=== PATIENT | female | born 1930 | race Caucasian/White ===

== ENCOUNTER → 2016-09-22 | Outpatient (CLI) | payer MEDICARE, OTHER ==
[2016-09-22 12:52] LABS: APPEARANCE,URINE SLIGHTLY-CLOUDY; BILIRUBIN,URINE NEGATIVE (NEGATIVE); GLUCOSE, URINE NEGATIVE (NEGATIVE); KETONES,URINE NEGATIVE (NEGATIVE); LEUKOCYTE ESTERASE,URINE NEGATIVE (NEGATIVE); NITRITE,URINE NEGATIVE (NEGATIVE); PROTEIN,URINE NEGATIVE (NEGATIVE); URINE SPECIFIC GRAVITY 1.031; UROBILINOGEN,URINE NEGATIVE mg/dL (<2.0)
[2016-09-22 12:53] LABS: ABSOLUTE EOSINOPHILS # (AUTO) 0.1 10^3/uL (0.0-0.6); ABSOLUTE LYMPHOCYTES (AUTO) 2.1 10^3/uL (0.5-4.7); ABSOLUTE MONOCYTES (AUTO) 1.3 10^3/uL (0.1-1.4); ABSOLUTE NEUT (AUTO) 10.8 10^3/uL (1.7-8.2); BASOPHILS % (AUTO) 0.3 % (0-2); EOSINOPHILS % (AUTO) 0.7 % (0-6); HEMATOCRIT 44.7 % (36.0-47.0); HEMOGLOBIN 15.3 g/dL (12.0-15.5); HGB HCT DIFFERENCE 1.2; LYMPHOCYTES % (AUTO) 14.5 % (13-45); MEAN CORPUSCULAR HGB CONC 34.3 g/dL (32.0-36.0); MEAN CORPUSCULAR VOLUME 90 fl (80-97); RED BLOOD COUNT 4.94 10^6/uL (3.72-5.28); RED CELL DISTRIBUTION WIDTH 12.8 % (11.5-14.0); SEGMENTED NEUTROPHILS % (AUTO) 75.5 % (42-78); WHITE BLOOD COUNT 14.4 10^3/uL (4.0-10.5)
[2016-09-22 13:11] LABS: ANION GAP 15 (5-19); BLOOD UREA NITROGEN 22 mg/dL (7-20); CALCIUM 10.3 mg/dL (8.4-10.2); CARBON DIOXIDE 22 mmol/L (22-30); CHLORIDE 104 mmol/L (98-107); CREATININE RESULT 0.68 mg/dL (0.52-1.25); GLUCOSE 84 mg/dL (75-110); POTASSIUM 4.7 mmol/L (3.6-5.0)
--- NOTE | 2016-09-22 13:43 | EKG REPORT ---
SEVERITY:- ABNORMAL ECG - SINUS RHYTHM RIGHT BUNDLE BRANCH BLOCK : Confirmed by: Manish Rogers MD 22-Sep-2016 13:42:59
== END ==
LOC: OD 11:52
PROVIDERS: ATTEND Orthopaedic Surgery
DX: Z01.818 Encounter for other preprocedural examination (principal); Z01.810 Encounter for preprocedural cardiovascular examination; Z01.812 Encounter for preprocedural laboratory examination; J44.9 Chronic obstructive pulmonary disease, unspecified
CPT/HCPCS: 36415; 71020; 80048; 81001; 85025; 93005; 93010

== ENCOUNTER 2016-10-10 08:03 | Inpatient (IN) | payer MEDICARE, OTHER ==
[~2016-10-10 08:03] MED LIST: BUPIVACAINE INJ/PF LIPOSOME/PF 266 MG/20 ML SDV IJ PRN; CLINDAMYCIN 600 MG/D5W RTU 600 MG/50 ML RTUPB IV PRN; IBUPROFEN 800 MG/NS 250 ML IV PRN; LACTATED RINGERS 1000 ML IV PRN; LANSOPRAZOLE 15 MG TAB.RAP.DR PO PRN; LIDOCAINE 0.5% INJ-PF (5 MG/ML) 50 ML SDV SUBCUT PRN; OXYCODONE HCL SR 10 MG TABLET PO PRN; SCOPOLAMINE HYDROBROMIDE 1.5 MG PATCH.TD72 TOP PRN; VANCOMYCIN HCL 1,000 MG in DEXTROSE 5%-WATER 250 ML IV PRN
[2016-10-10] MEDS: BUPIVACAINE INJ/PF LIPOSOME/PF 266 MG/20 ML SDV ONE ×2 (09:54→11:27)
[2016-10-10] MEDS: THROMBIN (BOVINE) 5000 UNIT EPITAXIS KIT ONE ×2 (09:55→11:27)
[2016-10-10] MEDS: THROMBIN (BOVINE) TOPICAL 20000 UNIT VIAL ONE ×2 (09:56→11:27)
[2016-10-10] MEDS ORDERED: PROPOFOL INJ 200 MG/20 ML VIAL IV ONE (10:24)
[2016-10-10] MEDS ORDERED: MIDAZOLAM 2 MG/2 ML INJ ONE (10:24)
[2016-10-10] MEDS ORDERED: FENTANYL CITRATE INJ/PF 100 MCG/2 ML AMPUL ONE (10:24)
[2016-10-10] MEDS ORDERED: TRANEXAMIC ACID INJ/PF 1,000 MG/10 ML SDV IV ONE ×3 (10:24→14:00)
[2016-10-10] MEDS ORDERED: PROMETHAZINE HCL INJ 25 MG/1 ML VIAL IV PRN ×2 (11:31)
[2016-10-10] MEDS ORDERED: MORPHINE SULFATE 10 MG/ML INJ IV PRN ×3 (11:31→12:10)
[2016-10-10] MEDS ORDERED: FENTANYL CITRATE INJ/PF 100 MCG/2 ML AMPUL IV PRN ×3 (11:31)
[2016-10-10] MEDS ORDERED: DIPHENHYDRAMINE HCL 50 MG/ML VIAL IV PRN ×2 (11:31→12:10)
[2016-10-10] MEDS ORDERED: MEPERIDINE HCL/PF INJ 25 MG/1 ML DISP.SYRIN IV PRN (11:31)
[2016-10-10] MEDS ORDERED: OXYCODONE-ACETAMINOPHEN 5-325 MG TABLET PO PRN ×2 (11:31)
[2016-10-10] MEDS ORDERED: MG TRISILICATE/ALH/NAHCO3/AA CHEWABLE TABLET PO PRN (12:08)
[2016-10-10] MEDS ORDERED: ACETAMINOPHEN 325 MG TABLET PO PRN ×2 (12:08→12:10)
[2016-10-10] MEDS ORDERED: MAG HYDROX/AL HYDROX/SIMETH SUSP 30 ML UDCUP PO PRN (12:10)
[2016-10-10] MEDS ORDERED: MORPHINE SULFATE 10 MG/ML INJ IM PRN (12:10)
[2016-10-10] MEDS ORDERED: ZOLPIDEM TARTRATE 5 MG TABLET PO PRN (12:10)
[2016-10-10] MEDS ORDERED: ONDANSETRON 4 MG TAB.RAPDIS PO PRN (12:10)
[2016-10-10] MEDS ORDERED: RINGERS SOLUTION,LACTATED 1,000 ML IV PRN (12:10)
[2016-10-10] MEDS ORDERED: ONDANSETRON HCL INJ/PF 4 MG/2 ML SDV IV PRN (12:10)
--- NOTE | 2016-10-10 12:16 | Operative Report ---
Operative Report DATE OF SURGERY: 10/10/16 PREOPERATIVE DIAGNOSIS: Left knee arthritis OPERATION: Left knee arthroplasty SURGEON: DELMY WILKINSON ANESTHESIA: Spinal TISSUE REMOVED OR ALTERED: Bone to pathology ESTIMATED BLOOD LOSS: 100 PROCEDURE: Implants used: Femur: Striker triathlon #4 CR femur Tibia:, 3 tibia Tibial liner:, 9 mm CS insert Patella: 29 mm oval patella Procedure with the patient supine on the operating table the left the limb is prepped and draped in a sterile fashion. The limb was elevated for exsanguination and the tourniquet inflated to 280 torr. A standard midline median parapatellar approach the knee is taken. Access is gained to the femoral canal through the intercondylar notch. Intramedullary alignment instrumentation used to resect 10 mm of distal femur in 5 of valgus. Sizing guide indicated a size for femur. Appropriate cutting jig is then used to fashion anterior posterior and chamfer cuts. A trial reduction femurs performed and this is judged to be adequate. Attention was next turned to the tibia. Using an extra medullary alignment system 9 millimeters was resected off the lateral tibial plateau. This is sized to a size 3 tibia. A trial reduction was now performed with a 4 femur and a 3 tibia using a 9 millimeters spacer. It is full extension and central patellofemoral tracking. The articular surface the patella was next resected using an oscillating saw. All trial implants were removed. Polymethylmethacrylate is mixed and used to cement the above implants in place. On adequate curing the cement excess cement was removed the tourniquet was deflated hemostasis obtained the wound is then closed in layers using interrupted Vicryl followed by giselle. A sterile compressive dressing was applied and the patient returned to recovery room in satisfactory condition.
[2016-10-10] MEDS ORDERED: GLYCOPYRROLATE INJ 0.4 MG/2 ML VIAL ONE (13:43)
[2016-10-10] MEDS ORDERED: ONDANSETRON HCL INJ/PF 4 MG/2 ML SDV ONE (13:43)
[2016-10-10] MEDS ORDERED: METOCLOPRAMIDE HCL INJ/PF 10 MG/2 ML SDV ONE (13:43)
[2016-10-10] MEDS: MECLIZINE HCL 25 MG TABLET PO SCH ×2 (16:24→17:49)
[2016-10-10] MEDS: OXYCODONE HCL IR 5 MG TABLET PO PRN (17:47)
[2016-10-10] MEDS: IBUPROFEN 800 MG in NORMAL SALINE 250 ML IV SCH (17:47)
[2016-10-10] MEDS: CYCLOSPORINE 0.05% OPH EMULSIO 0.4 ML DROPERETTE OP SCH (17:47)
[2016-10-10] MEDS: SENNOSIDES/DOCUSATE 8.6-50 MG 1 EACH TABLET PO SCH (17:48)
[2016-10-10] MEDS: LUBIPROSTONE 24 MCG CAPSULE PO SCH (17:48)
[2016-10-10] MEDS: SPIRONOLACTONE 25 MG TABLET PO SCH (17:48)
[2016-10-10] MEDS ORDERED: OXYCODONE HCL SR 10 MG TABLET PO SCH (22:00)
[2016-10-10] MEDS: MORPHINE SULFATE 10 MG/ML INJ IV PRN (23:15)
[2016-10-10] MEDS: FLUTICASONE NASAL SPRAY 50 MCG/SPRY 120 SPRAY/16 GM NASL SCH (23:18)
[2016-10-10] MEDS: LATANOPROST 0.005% OPH SOLN 2.5 ML OP SCH (23:21)
[2016-10-10] MEDS: RIVAROXABAN 10 MG TABLET PO SCH (23:23)
[2016-10-11] MEDS ORDERED: VANCOMYCIN HCL 1,000 MG in DEXTROSE 5%-WATER 250 ML IV ONE ×2
[2016-10-11] MEDS: OXYCODONE HCL IR 5 MG TABLET PO PRN ×3 (01:02→18:34)
[2016-10-11] MEDS: IBUPROFEN 800 MG in NORMAL SALINE 250 ML IV SCH ×3 (01:03→17:31)
[2016-10-11 05:38] LABS: HEMATOCRIT 36.2 % (36.0-47.0); HEMOGLOBIN 12.2 g/dL (12.0-15.5); HGB HCT DIFFERENCE 0.4; MEAN CORPUSCULAR HGB CONC 33.8 g/dL (32.0-36.0); MEAN CORPUSCULAR VOLUME 92 fl (80-97); RED BLOOD COUNT 3.95 10^6/uL (3.72-5.28); WHITE BLOOD COUNT 11.1 10^3/uL (4.0-10.5)
[2016-10-11 06:05] LABS: ANION GAP 11 (5-19); BLOOD UREA NITROGEN 11 mg/dL (7-20); CALCIUM 8.8 mg/dL (8.4-10.2); CARBON DIOXIDE 22 mmol/L (22-30); CHLORIDE 102 mmol/L (98-107); CREATININE RESULT 0.69 mg/dL (0.52-1.25); GLUCOSE 116 mg/dL (75-110); SODIUM 135.4 mmol/L (137-145)
[2016-10-11] MEDS: MORPHINE SULFATE 10 MG/ML INJ IV PRN (06:22)
[2016-10-11] MEDS: LANSOPRAZOLE 30 MG TAB.RAP.DR PO SCH (06:23)
--- NOTE | 2016-10-11 06:58 | PDOC PROGRESS REPORT ---
Subjective Progress Note for:: 10/11/16 Subjective:: Patient without any specific complaints Physical Exam Vital Signs: Temp Pulse Resp BP Pulse Ox 36.6 C 72 18 121/43 L 95 10/11/16 04:00 10/11/16 04:00 10/11/16 04:00 10/11/16 04:00 10/11/16 04:00 Intake & Output 10/09/16 10/10/16 10/11/16 06:59 06:59 06:59 Intake Total 4508 Output Total 4150 Balance 358 Weight 63.5 kg General appearance: PRESENT: no acute distress Head exam: PRESENT: normocephalic Eye exam: PRESENT: EOMI Respiratory exam: PRESENT: unlabored Cardiovascular exam: PRESENT: RRR Vascular exam: PRESENT: normal capillary refill GI/Abdominal exam: PRESENT: soft Rectal exam: PRESENT: deferred Extremities exam: PRESENT: other - Left lower extremity dressing is clean dry and intact. Distal neurovascular examinations intact. Skin exam: PRESENT: dry, intact, warm. ABSENT: cyanosis, rash Results Laboratory Results: 10/11/16 05:09 10/11/16 05:09 10/10/16 10/11/16 10/11/16 08:42 05:09 05:09 WBC 11.1 H RBC 3.95 Hgb 12.2 Hct 36.2 MCV 92 MCH 31.0 MCHC 33.8 RDW 13.0 Plt Count 166 Sodium 135.4 L Potassium 4.2 4.0 Chloride 102 Carbon Dioxide 22 Anion Gap 11 BUN 11 Creatinine 0.69 Est GFR ( Amer) > 60 Est GFR (Non-Af Amer) > 60 Glucose 116 H Calcium 8.8 Impressions: Knee X-Ray 10/10/16 12:11 IMPRESSION: SATISFACTORY POSTOPERATIVE LEFT KNEE. Status: Imported from PACS Assessment & Plan - Diagnosis (1) Arthritis of left knee Is this a current diagnosis for this admission?: YesPlan: 86-year-old white female status post left knee arthroplasty with an uneventful postoperative course. I'm somewhat concerned that she is overmedicated and hence have stopped her OxyContin. She ambulated 40 feet with physical therapy yesterday and will continue with aggressive physical therapy program. - Time Time Spent with patient: 15-24 minutes Anticipated discharge: Home with Homehealth Within: within 24 hours
[2016-10-11] MEDS ORDERED: (PENDING PHARMACY ID) (Atenolol [Tenormin] 25 MG) PO SCH (08:00)
[2016-10-11] MEDS: AMLODIPINE BESYLATE 5 MG TABLET PO SCH (08:28)
[2016-10-11] MEDS: ATENOLOL 50 MG TABLET PO SCH (08:28)
[2016-10-11] MEDS ORDERED: (PENDING PHARMACY ID) (Calcium Carbonate [Calcium] 600 MG) PO SCH (10:00)
[2016-10-11] MEDS ORDERED: ASCORBIC ACID PO SCH (10:00)
[2016-10-11] MEDS: LUBIPROSTONE 24 MCG CAPSULE PO SCH ×2 (10:13→17:32)
[2016-10-11] MEDS: PRENATAL VITAMIN W-O CA NO5/FE FUMARATE/FA CAPSULE PO SCH (10:13)
[2016-10-11] MEDS: FLUTICASONE NASAL SPRAY 50 MCG/SPRY 120 SPRAY/16 GM NASL SCH ×2 (10:13→22:39)
[2016-10-11] MEDS: ASCORBIC ACID 500 MG TABLET PO SCH (10:13)
[2016-10-11] MEDS: MONTELUKAST SODIUM 10 MG TABLET PO SCH (10:13)
[2016-10-11] MEDS: MECLIZINE HCL 25 MG TABLET PO SCH ×3 (10:13→17:32)
[2016-10-11] MEDS: SPIRONOLACTONE 25 MG TABLET PO SCH ×2 (10:14→17:32)
[2016-10-11] MEDS: MULTIVITAMIN TABLET PO SCH (10:14)
[2016-10-11] MEDS: SENNOSIDES/DOCUSATE 8.6-50 MG 1 EACH TABLET PO SCH ×2 (10:14→17:32)
[2016-10-11] MEDS: CALCIUM CARBONATE 500 MG TABLET PO SCH (10:14)
[2016-10-11] MEDS: CYCLOSPORINE 0.05% OPH EMULSIO 0.4 ML DROPERETTE OP SCH ×2 (10:15→17:32)
[2016-10-11] MEDS: RIVAROXABAN 10 MG TABLET PO SCH (22:38)
[2016-10-11] MEDS: LATANOPROST 0.005% OPH SOLN 2.5 ML OP SCH (22:39)
[2016-10-12] MEDS: OXYCODONE HCL IR 5 MG TABLET PO PRN (00:24)
[2016-10-12] MEDS: IBUPROFEN 800 MG in NORMAL SALINE 250 ML IV SCH ×2 (01:43→10:32)
[2016-10-12] MEDS: LANSOPRAZOLE 30 MG TAB.RAP.DR PO SCH (05:46)
[2016-10-12 06:29] LABS: HEMATOCRIT 36.6 % (36.0-47.0); HEMOGLOBIN 12.6 g/dL (12.0-15.5); HGB HCT DIFFERENCE 1.2; MEAN CORPUSCULAR HEMOGLOBIN 31.1 pg (27.0-33.4); MEAN CORPUSCULAR HGB CONC 34.4 g/dL (32.0-36.0); MEAN CORPUSCULAR VOLUME 91 fl (80-97); RED BLOOD COUNT 4.04 10^6/uL (3.72-5.28); RED CELL DISTRIBUTION WIDTH 13.4 % (11.5-14.0); WHITE BLOOD COUNT 14.2 10^3/uL (4.0-10.5)
--- NOTE | 2016-10-12 07:07 | PDOC PROGRESS REPORT ---
Subjective Progress Note for:: 10/12/16 Subjective:: Patient with considerable mental status changes Physical Exam Vital Signs: Temp Pulse Resp BP Pulse Ox 36.4 C 101 H 19 132/54 H 93 10/12/16 00:12 10/12/16 00:12 10/12/16 00:12 10/12/16 00:12 10/12/16 00:12 Intake & Output 10/11/16 10/12/16 10/13/16 06:59 06:59 06:59 Intake Total 4508 750 Output Total 4150 Balance 358 750 Weight 63.5 kg General appearance: PRESENT: no acute distress Head exam: PRESENT: normocephalic Respiratory exam: PRESENT: unlabored Cardiovascular exam: PRESENT: RRR Vascular exam: PRESENT: normal capillary refill GI/Abdominal exam: PRESENT: soft Rectal exam: PRESENT: deferred Extremities exam: PRESENT: other - Left lower extremity dressing is clean dry and intact. Psychiatric exam: PRESENT: other Focused psych exam: PRESENT: restlessness Skin exam: PRESENT: dry, intact, warm. ABSENT: cyanosis, rash Results Laboratory Results: 10/12/16 05:14 10/11/16 05:09 10/12/16 05:14 WBC 14.2 H RBC 4.04 Hgb 12.6 Hct 36.6 MCV 91 MCH 31.1 MCHC 34.4 RDW 13.4 Plt Count 175 Impressions: Knee X-Ray 10/10/16 12:11 IMPRESSION: SATISFACTORY POSTOPERATIVE LEFT KNEE. Status: Imported from PACS Assessment & Plan - Diagnosis (1) Arthritis of left knee Is this a current diagnosis for this admission?: YesPlan: 86-year-old white female postop day 2 from left knee arthroplasty. Yesterday she seemed oversedated and I stopped her OxyContin. Over the course of the day she became more and more confused and agitated. She was seen caring her walker behind her as she walked down the church independently. I suspect that the mental status changes reflect an underlying metabolic encephalopathy, presumably pharmacogenetic. I've further stopped her oxycodone, Ambien, and morphine. I've discussed the necessity for a DVT prophylaxis with the nursing staff and if we cannot get cooperation taking Xarelto will have to resort to Lovenox. Because the mental status changes. I don't think it's appropriate for her to consider discharge home today. If the mental status and clear consideration probably should be given to a fpc facility placement - Time Time Spent with patient: 15-24 minutes Medications reviewed and adjusted accordingly: Yes Anticipated discharge: SNF Within: within 24 hours
[2016-10-12] MEDS: AMLODIPINE BESYLATE 5 MG TABLET PO SCH (08:42)
[2016-10-12] MEDS: ATENOLOL 50 MG TABLET PO SCH (10:24)
[2016-10-12] MEDS: CYCLOSPORINE 0.05% OPH EMULSIO 0.4 ML DROPERETTE OP SCH ×2 (10:24→17:39)
[2016-10-12] MEDS: ASCORBIC ACID 500 MG TABLET PO SCH (10:24)
[2016-10-12] MEDS: PRENATAL VITAMIN W-O CA NO5/FE FUMARATE/FA CAPSULE PO SCH (10:24)
[2016-10-12] MEDS: LUBIPROSTONE 24 MCG CAPSULE PO SCH ×2 (10:24→17:40)
[2016-10-12] MEDS: FLUTICASONE NASAL SPRAY 50 MCG/SPRY 120 SPRAY/16 GM NASL SCH ×2 (10:24→23:05)
[2016-10-12] MEDS: MECLIZINE HCL 25 MG TABLET PO SCH (10:25)
[2016-10-12] MEDS: SPIRONOLACTONE 25 MG TABLET PO SCH ×2 (10:25→17:40)
[2016-10-12] MEDS: MULTIVITAMIN TABLET PO SCH (10:25)
[2016-10-12] MEDS: MONTELUKAST SODIUM 10 MG TABLET PO SCH (10:25)
[2016-10-12] MEDS: SENNOSIDES/DOCUSATE 8.6-50 MG 1 EACH TABLET PO SCH ×2 (10:25→17:40)
[2016-10-12] MEDS: CALCIUM CARBONATE 500 MG TABLET PO SCH (10:25)
[2016-10-12] MEDS: HYDROCODONE/ACETAMINOPHEN 5-325 MG TABLET PO PRN ×2 (11:43→23:05)
[2016-10-12] MEDS ORDERED: HALOPERIDOL LACTATE INJ 5 MG/1 ML VIAL IV PRN (13:31)
[2016-10-12 15:20] LABS: ANION GAP 12 (5-19); BLOOD UREA NITROGEN 11 mg/dL (7-20); CALCIUM 9.5 mg/dL (8.4-10.2); CARBON DIOXIDE 25 mmol/L (22-30); CHLORIDE 102 mmol/L (98-107); CREATININE RESULT 0.67 mg/dL (0.52-1.25); GLUCOSE 119 mg/dL (75-110); POTASSIUM 3.7 mmol/L (3.6-5.0); SODIUM 139.4 mmol/L (137-145)
[2016-10-12 15:20] LABS: APPEARANCE,URINE CLEAR; BILIRUBIN,URINE NEGATIVE (NEGATIVE); GLUCOSE, URINE NEGATIVE (NEGATIVE); KETONES,URINE NEGATIVE (NEGATIVE); LEUKOCYTE ESTERASE,URINE NEGATIVE (NEGATIVE); NITRITE,URINE NEGATIVE (NEGATIVE); PROTEIN,URINE NEGATIVE (NEGATIVE); URINE SPECIFIC GRAVITY 1.006; UROBILINOGEN,URINE NEGATIVE mg/dL (<2.0)
--- NOTE | 2016-10-12 18:58 | EKG REPORT ---
SEVERITY:- ABNORMAL ECG - SINUS RHYTHM RIGHT BUNDLE BRANCH BLOCK : Confirmed by: Manish Rogers MD 12-Oct-2016 18:57:33
[2016-10-12] MEDS ORDERED: GUAIFENESIN SYRP 200 MG/10 ML UDC PO PRN (21:29)
[2016-10-12] MEDS ORDERED: IPRATROPIUM/ALBUTEROL 0.5-2.5 MG/3 ML AMPUL NEB PRN (21:29)
[2016-10-12] MEDS ORDERED: AZTREONAM INJ 1 GM VIAL IV SCH (22:15)
[2016-10-12] MEDS ORDERED: DOXYCYCLINE HYCLATE 100 MG in DEXTROSE 5%-WATER 250 ML IV SCH (22:15)
[2016-10-12] MEDS: LATANOPROST 0.005% OPH SOLN 2.5 ML OP SCH (23:06)
[2016-10-12] MEDS: HEPARIN SOD (PORCINE) 5,000 UNIT/ML 1 ML SYRINGE SUBCUT SCH (23:06)
[2016-10-12] MEDS ORDERED: DOXYCYCLINE HYCLATE INJ 100 MG VIAL ONE (23:30)
[2016-10-13] MEDS ORDERED: AZTREONAM 1 GM in DEXTROSE 5%-WATER 50 ML IV SCH ×2
[2016-10-13 04:52] LABS: HEMATOCRIT 34.1 % (36.0-47.0); HGB HCT DIFFERENCE 1.9; MEAN CORPUSCULAR HEMOGLOBIN 31.7 pg (27.0-33.4); MEAN CORPUSCULAR HGB CONC 35.1 g/dL (32.0-36.0); MEAN CORPUSCULAR VOLUME 90 fl (80-97); RED BLOOD COUNT 3.78 10^6/uL (3.72-5.28); RED CELL DISTRIBUTION WIDTH 13.3 % (11.5-14.0); WHITE BLOOD COUNT 9.9 10^3/uL (4.0-10.5)
[2016-10-13] MEDS: HYDROCODONE/ACETAMINOPHEN 5-325 MG TABLET PO PRN (06:08)
[2016-10-13] MEDS: LANSOPRAZOLE 30 MG TAB.RAP.DR PO SCH (06:08)
[2016-10-13] MEDS ORDERED: AZTREONAM INJ 1 GM VIAL ONE (06:57)
--- NOTE | 2016-10-13 06:57 | PDOC TRANSFER SUMMARY ---
General - Admit/Disc Date/PCP Admission Date/Primary Care Provider: 10/10/16 08:03 HALE[facility] HORTON Discharge Date: 10/13/16 - Discharge Diagnosis (1) Arthritis of left knee Is this a current diagnosis for this admission?: Yes - Additional Information Resuscitation Status: Full Code Discharge Diet: As Tolerated, Regular Discharge Activity: Activity As Tolerated, Balance Activity w/Rest Home Medications: Acetaminophen [Tylenol] 650 mg PO Q8 PRN 09/28/16 Amlodipine Besylate 5 mg PO QAM 09/28/16 Ascorbic Acid [Vitamin C] 1 cap.sr PO DAILY 09/28/16 Aspirin [Aspirin EC] 81 mg PO DAILY 09/28/16 Atenolol [Tenormin] 25 mg PO QAM 09/28/16 Calcium Carbonate [Calcium] 600 mg PO DAILY 09/28/16 Cyclosporine 0.05% Oph Emulsio [Restasis 0.05% Oph Emulsion Pf 0.4 ml] 1 drop OP BID 09/28/16 Fluticasone Propionate [Flonase Nasal [place] 50 Mcg/Parnell 16 gm] 1 spray NASL Q12 09/28/16 Ibuprofen 400 mg PO QHS 09/28/16 Latanoprost [Xalatan 0.005% Oph Soln 2.5 ml] 1 drop OP QHS 09/28/16 Lubiprostone [Amitiza] 24 mcg PO BID 09/28/16 Meclizine HCl 25 mg PO TID 09/28/16 Montelukast Sodium [Singulair] 10 mg PO DAILY 09/28/16 Multivitamin [Multivitamins] 1 each PO DAILY 09/28/16 Spironolactone 25 mg PO BID 09/28/16 Tramadol HCl 50 mg PO QHS 09/28/16 mg Trisilicate/Alh/Nahco3/Aa [Gaviscon Tablet Chew] 1 each PO DAILY PRN Guaifenesin [Robitussin Syrup 200 mg/10 ml Ud Cup] 200 mg PO Q6HP PRN #0 udc 09/26 Haloperidol Lactate [Haldol 5 mg/ml Inj 1 ml Vial] 2 mg IV Q6HP PRN #0 vial 09/26 History of Present Illness Admission Date/PCP: 10/10/16 08:03 HALE[facility] HORTON History of Present Illness: The patient's an 86-year-old white female who presents with progressive left knee pain and functional disability secondary osteoarthritis. She is admitted for elective left knee arthroplasty. Hospital Course Hospital Course: A she is admitted through the operating room where she undergoes an uncomplicated left knee arthroplasty. She's returned to floor in satisfactory condition. On postop day 1, she begins to develop significant mental status changes. Most of her medications. It could be discontinued were. She was consult by the hospital service who began doxycycline for presumed upper the torn infection as well as Haldol. Her mental status returned to baseline with the intervention. She's made excellent progress with physical therapy. Physical Exam Vital Signs: Temp Pulse Resp BP Pulse Ox 36.7 C 82 16 117/55 L 96 10/12/16 23:52 10/12/16 23:52 10/12/16 23:52 10/12/16 23:52 10/12/16 23:52 Intake & Output 10/11/16 10/12/16 10/13/16 06:59 06:59 06:59 Intake Total 4508 870 625 Output Total 4150 100 Balance 358 770 625 Weight 63.5 kg General appearance: PRESENT: no acute distress Head exam: PRESENT: normocephalic Respiratory exam: PRESENT: unlabored Cardiovascular exam: PRESENT: RRR Pulses: PRESENT: +1 pedal pulses bilateral GI/Abdominal exam: PRESENT: soft Rectal exam: PRESENT: deferred Musculoskeletal exam: PRESENT: other - Left lower extremity. Shady dressing is clean dry and intact. Neurological exam: PRESENT: alert, awake, oriented to person, oriented to place , oriented to time, oriented to situation Skin exam: PRESENT: dry, intact, warm. ABSENT: cyanosis, rash Results Laboratory Results: 10/13/16 04:34 10/12/16 14:37 10/12/16 10/12/16 10/13/16 14:02 14:37 04:34 WBC 9.9 RBC 3.78 Hgb 12.0 Hct 34.1 L MCV 90 MCH 31.7 MCHC 35.1 RDW 13.3 Plt Count 141 L Sodium 139.4 Potassium 3.7 Chloride 102 Carbon Dioxide 25 Anion Gap 12 BUN 11 Creatinine 0.67 Est GFR ( Amer) > 60 Est GFR (Non-Af Amer) > 60 Glucose 119 H Calcium 9.5 Urine Color YELLOW Urine Appearance CLEAR Urine pH 6.0 Ur Specific [place] 1.006 Urine Protein NEGATIVE Urine Glucose (UA) NEGATIVE Urine Ketones NEGATIVE Urine Blood NEGATIVE Urine Nitrite NEGATIVE Ur Leukocyte Esterase NEGATIVE Urine WBC (Auto) 0 Urine RBC (Auto) 1 Impressions: Knee X-Ray 10/10/16 12:11 IMPRESSION: SATISFACTORY POSTOPERATIVE LEFT KNEE. Chest X-Ray 10/12/16 00:00 IMPRESSION: A limited infiltrate versus subsegmental atelectasis cannot be ruled out in the left base. Status: Imported from PACS Transfer Plan - Disposition Transfer Plan: Patient to be transferred to [facility] facility for aggressive ongoing postoperative rehabilitation. The left knee shady dressing can be changed on postop day 7 replace with a standard OpSite dressing. Follow-up can be with Dr. Matute in [facility] for surgery 2 weeks for staple removal. - Time Spent with Patient Time spent with patient: Less than 30 Minutes
[2016-10-13] MEDS: AMLODIPINE BESYLATE 5 MG TABLET PO SCH (08:57)
[2016-10-13] MEDS: ATENOLOL 50 MG TABLET PO SCH (08:57)
[2016-10-13] MEDS: MULTIVITAMIN TABLET PO SCH (09:57)
[2016-10-13] MEDS: SENNOSIDES/DOCUSATE 8.6-50 MG 1 EACH TABLET PO SCH (09:57)
[2016-10-13] MEDS: PRENATAL VITAMIN W-O CA NO5/FE FUMARATE/FA CAPSULE PO SCH (09:57)
[2016-10-13] MEDS: SPIRONOLACTONE 25 MG TABLET PO SCH (09:57)
[2016-10-13] MEDS: CALCIUM CARBONATE 500 MG TABLET PO SCH (09:57)
[2016-10-13] MEDS: MONTELUKAST SODIUM 10 MG TABLET PO SCH (09:57)
[2016-10-13] MEDS: ASCORBIC ACID 500 MG TABLET PO SCH (09:58)
[2016-10-13] MEDS: HEPARIN SOD (PORCINE) 5,000 UNIT/ML 1 ML SYRINGE SUBCUT SCH (09:59)
[2016-10-13] MEDS: FLUTICASONE NASAL SPRAY 50 MCG/SPRY 120 SPRAY/16 GM NASL SCH (09:59)
[2016-10-13] MEDS: LUBIPROSTONE 24 MCG CAPSULE PO SCH (10:01)
[2016-10-13] MEDS: CYCLOSPORINE 0.05% OPH EMULSIO 0.4 ML DROPERETTE OP SCH (10:33)
[2016-10-13 14:25] VITALS: BP 107/63
--- NOTE | 2016-10-13 17:45 | PDOC CONSULTATION ---
Consultation Consult Date: 10/12/16 Attending physician:: DELMY WILKINSON Consult reason:: Confusion History of Present Illness Admission Date/PCP: 10/10/16 08:03 HALEIGH HORTON History of Present Illness: KEITH REEDER is a 86 year old female with a past medical history heart murmur, glaucoma, hypertension, constipation, arthritis who underwent left total knee replacement approximately 48 hours before. Patient began developing confusion after surgery. Patient's medications were stopped including OxyContin , oxycodone. She has no complaints at this time. Her daughters present at bedside and provides most of the history as is review of the chart. Past Medical History Cardiac Medical History: Reports: Hyperlipidema, Hypertension Denies: Atrial Fibrillation, Congestive Heart Failure, Coronary Artery Disease, Myocardial Infarction, Peripheral Vascular Disease, Pulmonary Embolism , Heart Murmur Pulmonary Medical History: Denies: Asthma, Bronchitis, Chronic Obstructive Pulmonary Disease (COPD), Pneumonia, Respiratory Failure, Sleep Apnea, Tuberculosis Renal/ Medical History: Denies: End Stage Renal Disease Malignancy Medical History: Denies: Lung Cancer Musculoskeltal Medical History: Reports: Arthritis Denies: Fibromyalgia Past Surgical History Past Surgical History: Reports: Appendectomy - at time of hysterectomy, Hysterectomy, Knee Replacement, Tonsillectomy Denies: Amputation, Section, Cholecystectomy, Coronary Artery Bypass Graft, Gastric Bypass Surgery, Herniorrhaphy, Mastectomy, Pacemaker, Tubal Ligation Social History Smoking Status: Former Smoker Cigarettes Packs Per Day: 0.3 Hx Recreational Drug Use: No Hx Prescription Drug Abuse: No - Advance Directive Resuscitation Status: Full Code Surrogate healthcare decision maker:: Son, Family History Family History: Hypertension, Malignancy Parental Family History Reviewed: Yes Children Family History Reviewed: Yes Sibling(s) Family History Reviewed.: Yes Medication/Allergy Home Medications: Acetaminophen [Tylenol] 650 mg PO Q8 PRN 09/28/16 Amlodipine Besylate 5 mg PO QAM 09/28/16 Ascorbic Acid [Vitamin C] 1 cap.sr PO DAILY 09/28/16 Aspirin [Aspirin EC] 81 mg PO DAILY 09/28/16 Atenolol [Tenormin] 25 mg PO QAM 09/28/16 Calcium Carbonate [Calcium] 600 mg PO DAILY 09/28/16 Cyclosporine 0.05% Oph Emulsio [Restasis 0.05% Oph Emulsion Pf 0.4 ml] 1 drop OP BID 09/28/16 Fluticasone Propionate [Flonase Nasal [place] 50 Mcg/[place] 16 gm] 1 spray NASL Q12 09/28/16 Ibuprofen 400 mg PO QHS 09/28/16 Latanoprost [Xalatan 0.005% Oph Soln 2.5 ml] 1 drop OP QHS 09/28/16 Lubiprostone [Amitiza] 24 mcg PO BID 09/28/16 Meclizine HCl 25 mg PO TID 09/28/16 Montelukast Sodium [Singulair] 10 mg PO DAILY 09/28/16 Multivitamin [Multivitamins] 1 each PO DAILY 09/28/16 Spironolactone 25 mg PO BID 09/28/16 Tramadol HCl 50 mg PO QHS 09/28/16 mg Trisilicate/Alh/Nahco3/Aa [Gaviscon Tablet Chew] 1 each PO DAILY PRN Guaifenesin [Robitussin Syrup 200 mg/10 ml Ud Cup] 200 mg PO Q6HP PRN #0 udc 09/26 Haloperidol Lactate [Haldol 5 mg/ml Inj 1 ml Vial] 2 mg IV Q6HP PRN #0 vial 09/26 Allergies/Adverse Reactions: Penicillins Allergy (Verified 09/28/16 18:08) Rash Sulfa (Sulfonamide Antibiotics) Allergy (Verified 09/28/16 18:08) Rash lactose Adverse Reaction (Verified 09/28/16 18:08) Upset Stomach/Cold Symptoms Review of Systems ROS unobtainable: Due to mental status Physical Exam Vital Signs: Temp Pulse Resp BP Pulse Ox 98.5 F 86 20 105/69 94 10/12/16 07:25 10/12/16 07:25 10/12/16 07:25 10/12/16 07:25 10/12/16 07:25 Intake & Output 10/11/16 10/12/16 10/13/16 06:59 06:59 06:59 Intake Total 4508 870 200 Output Total 4150 100 Balance 358 770 200 Weight 63.5 kg General appearance: PRESENT: no acute distress, well-developed, well-nourished Head exam: PRESENT: atraumatic, normocephalic Eye exam: PRESENT: conjunctiva pink, EOMI, PERRLA. ABSENT: scleral icterus Ear exam: PRESENT: normal external ear exam Mouth exam: PRESENT: moist, tongue midline Neck exam: ABSENT: JVD, lymphadenopathy, tracheal deviation Respiratory exam: PRESENT: decreased breath sounds - Left lower lobe, symmetrical, unlabored. ABSENT: rales, rhonchi, tachypnea, wheezes Cardiovascular exam: PRESENT: RRR, +S1, +S2, systolic murmur. ABSENT: diastolic murmur, rubs Pulses: PRESENT: normal dorsalis pedis pul Vascular exam: PRESENT: normal capillary refill GI/Abdominal exam: PRESENT: normal bowel sounds, soft. ABSENT: distended, guarding, mass, organolmegaly, rebound, tenderness Rectal exam: PRESENT: deferred Extremities exam: PRESENT: full ROM. ABSENT: calf tenderness, clubbing, pedal edema Neurological exam: PRESENT: alert, awake, oriented to person, CN II-XII grossly intact. ABSENT: oriented to place, oriented to time, oriented to situation, motor sensory deficit Psychiatric exam: PRESENT: agitated, appropriate affect. ABSENT: homicidal ideation, suicidal ideation Skin exam: PRESENT: dry, intact, warm. ABSENT: cyanosis, rash Results Laboratory Results: 10/12/16 05:14 10/12/16 05:14 WBC 14.2 H RBC 4.04 Hgb 12.6 Hct 36.6 MCV 91 MCH 31.1 MCHC 34.4 RDW 13.4 Plt Count 175 Impressions: Knee X-Ray 10/10/16 12:11 IMPRESSION: SATISFACTORY POSTOPERATIVE LEFT KNEE. Assessment & Plan - Diagnosis (1) Delirium Is this a current diagnosis for this admission?: YesPlan: We will continue to trend patient's medications including to exclude meclizine which she's been on scheduled. Will obtain UA and culture as well as chest x- ray. We'll stop her IV fluids. Patient is eating and drinking. We will also check an EKG and administered patient Haldol after this. Most likely this is delirium secondary to medications and will improve once they 've cleared. We appreciate his kind consult. (2) Heart murmur Is this a current diagnosis for this admission?: YesPlan: Patient has had preoperative clearance. We will pursue this if it becomes a issue. (3) Arthritis of left knee Is this a current diagnosis for this admission?: YesPlan: Defer to primary team - Time Time Spent: 30 to 50 Minutes Medications reviewed and adjusted accordingly: Yes Anticipated discharge: Acute Rehab Within: when bed available
== END 2016-10-13 15:26 | DRG 469 ==
LOC: INOR 08:03 → 4S 13:09
PROVIDERS: ADMIT Orthopaedic Surgery; ATTEND Orthopaedic Surgery
PROC: 0SRD0J9 Replacement of Left Knee Joint with Synthetic Substitute, Cemented, Open Approach (ICD-10-PCS; principal; 2016-10-10 10:15)
DX: M17.12 Unilateral primary osteoarthritis, left knee (principal); G92 Toxic encephalopathy; M25.552 Pain in left hip; I10 Essential (primary) hypertension; E78.5 Hyperlipidemia, unspecified; R41.0 Disorientation, unspecified; T40.2X5A Adverse effect of other opioids, initial encounter; Y92.230 Patient room in hospital as the place of occurrence of the external cause; Z96.651 Presence of right artificial knee joint; Z88.0 Allergy status to penicillin; Z88.2 Allergy status to sulfonamides
CPT/HCPCS: 01402; 36415; 71010; 80048; 81001; 84132; 85027; 87086; 87088; 87186; 88304; 88311; 93005; 93010; 94640; 94799; C9290; G8978-GP; G8979-GP; G8987-GO; G8988-GO; J1200; J1630; J1644; J1741; J2250; J2270; J2405; J2704; J2765; J3010; J3370; J3490; J7050; J7060; J7120; J7620